=== PATIENT | male | born 2000 | race Caucasian/White ===

== ENCOUNTER 2024-11-30 05:33 | Emergency (ER) | payer OTHER ==
[~2024-11-30] VITALS: Ht 172.7 cm; Wt 68.2 kg
[~2024-11-30 05:33] MED LIST: INSLAN SQ; INSU100C6 SQ; NPH,100V SQ
[2024-11-30] MEDS: SODIUM CHLORIDE 0.9% 2,050 ML IV ONE (06:14)
[2024-11-30 06:37] LABS: PLATELET COUNT (AUTO) 499 K/uL (150-450); RED BLOOD CELL COUNT(AUTO) 4.39 MIL/uL (4.50-5.90); RED CELL DISTRIBUTION WIDTH 13.8 % (11.5-14.5); WHITE BLOOD COUNT (AUTO) 15.4 K/uL (4.5-11.0)
[2024-11-30 06:53] LABS: LACTIC ACID 1.7 mmol/L (0.4-2.0)
[2024-11-30 06:55] LABS: SODIUM SERUM 132.0 mmol/L (136-145)
[2024-11-30 06:57] LABS: CALCIUM, TOTAL 8.7 mg/dL (8.8-10.5); CREATININE 1.53 mg/dL (0.60-1.30); GLOMERULAR FILTR. RATE CALC 56.0 mL/min (>60)
[2024-11-30 06:58] LABS: GLUCOSE,RANDOM 202.0 mg/dL (70-110); UREA NITROGEN, BLOOD 27.0 mg/dL (7-18)
[2024-11-30 07:36] VITALS: TEMP 98
[2024-11-30 07:47] LABS: APPEARANCE,URINE CLEAR (CLEAR); GLUCOSE, URINE (UA) 300-500 mg/dL (NEGATIVE); LEUKOCYTE ESTERASE ,URINE NEGATIVE (NEGATIVE); NITRATE,URINE NEGATIVE (NEGATIVE); OCCULT BLOOD,URINE MODERATE (NEGATIVE); SPECIFIC GRAVITIY, URINE 1.018 (1.003-1.030)
[2024-11-30] MEDS ORDERED: INSU100V MISC (07:52)
[2024-11-30] MEDS ORDERED: [UNRECOGNIZED DRUG - CODE] SQ (07:52)
[2024-11-30 07:59] LABS: ACETONE,BLOOD 1:2 (NEGATIVE)
[2024-11-30 08:08] LABS: SQUAMOUS EPITHELIAL CELL,UR Few /LPF (None Seen)
[2024-11-30] MEDS: INSULIN REGULAR, HUMAN 100 UNITS/ML IVP ONE ×2 (08:39→12:13)
[2024-11-30] MEDS: SODIUM CHLORIDE 0.9% 1,000 ML IV ONE (08:40)
[2024-11-30] MEDS: KETOROLAC TROMETHAMINE 30 MG/ML VIAL IVP ONE (10:55)
[2024-11-30] MEDS: SODIUM CHLORIDE 0.9% 500 ML IV ONE (10:56)
[2024-11-30 11:56] VITALS: BP 123/57; PULSE 92; RESP 18; O2SAT 100
[2024-11-30] MEDS ORDERED: ONDA-104 PO (12:45)
[2024-11-30] MEDS ORDERED: PERCT PO (12:50)
== END 2024-11-30 12:57 | disposition home or self-care (01) ==
LOC: EMS 05:34
DX: E11.10 Type 2 diabetes mellitus with ketoacidosis without coma (principal); E86.0 Dehydration; N20.0 Calculus of kidney; Z96.41 Presence of insulin pump (external) (internal); Z79.4 Long term (current) use of insulin
CPT/HCPCS: 99285; 74176; 96374; 96361; 71045; 96375; 80048; 81001; 82009; 82962; 83605; 83690; 85025; 36415; 96376; J1885; J1815; J7030; J7040